=== PATIENT | female | born 1975 | race Caucasian/White ===

== ENCOUNTER 2016-12-22 14:12 | Emergency (ER) | payer MEDICAID ==
[~2016-12-22] VITALS: Ht 160 cm; Wt 71.2 kg
[2016-12-22] MEDS ORDERED: SYNTHROID100 MCG ORAL (14:24)
[2016-12-22 14:28] VITALS: BP 102/68
[2016-12-22 15:20] LABS: BASOPHILS % (AUTO) 0.9 % (0.0-2.0); EOSINOPHILS % (AUTO) 1.1 % (0.0-3.0); LYMPHOCYTES % (AUTO) 34.6 % (20.0-45.0); MEAN CORPUSCULAR HEMOGLOBIN 29.6 PG (27.0-31.0); MEAN CORPUSCULAR HGB CONC 33.4 G/DL (32.0-36.0); MEAN CORPUSCULAR VOLUME 89 FL (80-99); MEAN PLATELET VOLUME 8.1 FL (6.5-10.1); MONOCYTES % (AUTO) 9.5 % (1.0-10.0); PLATELET COUNT 232 K/UL (150-450); WHITE BLOOD COUNT 8.6 K/UL (4.8-10.8)
[2016-12-22 16:21] LABS: ALANINE AMINOTRANSFERASE 12 U/L (3-33); ALBUMIN/GLOBULIN RATIO 1.5 (1.0-2.7); ANION GAP 13 (5-15); ASPARTATE AMINO TRANSFERASE 13 U/L (5-40); CARBON DIOXIDE 26 mEQ/L (20-30); CHLORIDE 99 mEQ/L (98-107); CREATININE 0.6 mg/dL (0.5-0.9); GLOMERULAR FILTRATION RATE > 60 mL/min (>60); HEMOLYSIS 2; POTASSIUM 4.3 mEQ/L (3.4-4.9); SODIUM 138 mEQ/L (135-145); TOTAL PROTEIN 6.8 g/dL (6.6-8.7)
[2016-12-22 16:43] VITALS: BP 104/65
[2016-12-22 16:44] VITALS: BP 104/65
--- NOTE | 2016-12-22 20:45 | Emergency Room Report ---
History of Present Illness General Chief Complaint: Pain Source: Patient Present Illness HPI The patient is a 41 -year-old female presenting for right leg pain. The patient states that she had a "[place] butt lift" in without any complications. 1 month after the surgery, she noticed pain and swelling to the right leg. The patient returned to the surgeon at that time and and aspiration was attempted but was unremarkable. No fluid was collected. No treatment was rendered at that time and the patient has not seen the surgeon since. Pain is described as a 5/10 dull ache to the back of the thigh and does not radiate. Pain worse with movement. She denies any known injury to the area. She denies any other symptoms including N, V, F, Chills, SOB, CP, calf pain, rash Allergies: Coded Allergies: No Known Allergies (Unverified , 12/22/16) Patient History Past Medical History: see triage record Pertinent Family History: none Last Menstrual Period: One week ago Now: No Reviewed Nursing Documentation: PMH: Agreed, PSxH: Agreed Nursing Documentation-PMH Hx Diabetes: No - Hypothyroid Review of Systems All Other Systems: negative except mentioned in HPI Physical Exam Vital Signs Date Time Temp Pulse Resp B/P Pulse Ox O2 Delivery O2 Flow Rate FiO2 12/22/16 14:18 97.7 90 16 102/68 100 Room Air Sp02 EP Interpretation: reviewed, normal General Appearance: no apparent distress, alert, GCS 15, non-toxic Head: normocephalic, atraumatic Eyes: bilateral eye PERRL, bilateral eye normal inspection ENT: hearing grossly normal, normal pharynx, no angioedema, normal voice Gastrointestinal: normal bowel sounds, non tender, soft, non-distended, no guarding, no rebound Musculoskeletal: back normal, digits/nails normal, gait/station normal, normal range of motion, no calf tenderness, tender - TTP over the R posterior medial thigh Neurologic: alert, oriented x3, responsive, motor strength/tone normal, sensory intact, normal gait, speech normal Psychiatric: judgement/insight normal, memory normal, mood/affect normal, no suicidal/homicidal ideation Skin: normal color, no rash, warm/dry, well hydrated Lymphatic: no adenopathy Medical Decision Making PA Attestation Dr. Ray is my supervising physician. Patient management was discussed with my supervising physician Diagnostic Impression: Primary Impression: Right leg swelling ER Course The patient is a 41 -year-old female presenting for right leg pain and swelling Ddx considered include but not limited to sprain/strain, fracture, contusion, DVT, martin cyst PE: vitals WNL. NAD Right leg: Posterior mid thigh there is slight edema. No fluctuance. No surgical scars. No erythema. The area is not tender to palpation. Full active range of motion of the knee. No edema to popliteal region Blood work is all unremarkable including d-dimer. Venous duplex ordered and is unremarkable The patient will need to follow up with her surgeon. ER precautions are given. Patient may need MRI Laboratory Tests Test 12/22/16 15:00 White Blood Count 8.6 K/UL (4.8-10.8) Red Blood Count 4.80 M/UL (4.20-5.40) Hemoglobin 14.2 G/DL (12.0-16.0) Hematocrit 42.5 % (37.0-47.0) Mean Corpuscular Volume 89 FL (80-99) Mean Corpuscular Hemoglobin 29.6 PG (27.0-31.0) Mean Corpuscular Hemoglobin Concent 33.4 G/DL (32.0-36.0) Red Cell Distribution Width 12.0 % (11.6-14.8) Platelet Count 232 K/UL (150-450) Mean Platelet Volume 8.1 FL (6.5-10.1) Neutrophils (%) (Auto) 54.0 % (45.0-75.0) Lymphocytes (%) (Auto) 34.6 % (20.0-45.0) Monocytes (%) (Auto) 9.5 % (1.0-10.0) Eosinophils (%) (Auto) 1.1 % (0.0-3.0) Basophils (%) (Auto) 0.9 % (0.0-2.0) D-Dimer 323 ng/mL (<500) Sodium Level 138 mEQ/L (135-145) Potassium Level 4.3 mEQ/L (3.4-4.9) Chloride Level 99 mEQ/L (98-107) Carbon Dioxide Level 26 mEQ/L (20-30) Anion Gap 13 (5-15) Blood Urea Nitrogen 11 mg/dL (7-23) Creatinine 0.6 mg/dL (0.5-0.9) Estimate Glomerular Filtration Rate > 60 mL/min (>60) Glucose Level 76 mg/dL (74-106) Calcium Level 9.0 mg/dL (8.6-10.2) Total Bilirubin 0.4 mg/dL (0.0-1.2) Aspartate Amino Transferase (AST) 13 U/L (5-40) Alanine Aminotransferase (ALT) 12 U/L (3-33) Alkaline Phosphatase 67 U/L (35-104) Total Protein 6.8 g/dL (6.6-8.7) Albumin 4.1 g/dL (3.5-5.2) Globulin 2.7 g/dL Albumin/Globulin Ratio 1.5 (1.0-2.7) Lab Results Impression CBC, CMP, D-Dimer all unremarkable CT/MRI/US Diagnostic Results CT/MRI/US Diagnostic Results : Imaging Test Ordered: venous duplex Impression Unremarkable Last Vital Signs Date Time Temp Pulse Resp B/P Pulse Ox O2 Delivery O2 Flow Rate FiO2 12/22/16 16:44 97.7 67 16 104/65 100 Room Air Status: improved Disposition: HOME, SELF-CARE Condition: Improved Patient Instructions: Edema Additional Instructions: I discussed my findings with the patient. All questions and concerns have been answered. Treatment and medication compliance have been addressed. I advised the patient that they need to follow up with PMD in 3-5 days. Return to ED if symptoms worsen, new symptoms arise, or if needed for any reason. Patient verbalized understanding of discharge instructions. The patient is informed she will need to see her surgeon for follow up and possibly also obtain MRI. RISHI MTZ Dec 22, 2016 20:45
--- NOTE | 2016-12-23 11:56 | Diagnostic Imaging Report ---
APPROVED REPORT CPT Code: 91118 Present Symptoms Lower Extremity Pain: Right RIGHT LEG: Venous imaging reveals a patent deep venous system. There is no evidence of thrombus within the femoral, popliteal or tibial segments. The greater saphenous vein is also within normal limits. Doppler indicates normal spontaneous flow within these segments.
== END 2016-12-22 17:01 | disposition home or self-care (01) ==
LOC: EMR 15:10
DX: M79.89 Other specified soft tissue disorders (principal); M79.661 Pain in right lower leg; E03.9 Hypothyroidism, unspecified
CPT/HCPCS: 36415; 80053; 85025; 85379; 93971; 99284

== ENCOUNTER 2017-07-10 16:07 | Inpatient (IN) | payer MEDICAID ==
[~2017-07-10] VITALS: Ht 160 cm; Wt 68.9 kg
[~2017-07-10 16:07] MED LIST: SYNTHROID100 MCG ORAL
--- NOTE | 2017-07-10 17:01 | Emergency Room Report ---
History of Present Illness General Chief Complaint: General Complaint Source: Patient Present Illness HPI Patient is a 41-year-old female brought in by self after increased right lower extremity swelling. Patient gradual onset of symptoms. Patient had previously had a plastic surgery procedure done approximately one year ago. The patient had previous similar symptoms and had previous negative duplex ultrasound of her right lower extremity. The patient was noted to have increased discomfort as well as increased swelling over the past few days. Patient was referred to emergency department for further evaluation and treatment. The patient's primary care physician is Dr. Abebe Martínez. She denies any fever. She reports having multiple drainage procedure done previously. The patient previous MRI which showed myositis of the right vastus lateralis. She denies being on antibiotics currently. Allergies: Coded Allergies: No Known Allergies (Unverified , 12/22/16) Patient History Past Medical History: see triage record Reviewed Nursing Documentation: PMH: Agreed, PSxH: Agreed Nursing Documentation-PMH Past Medical History: No Stated History Hx Diabetes: No - Hypothyroid Review of Systems All Other Systems: negative except mentioned in HPI Physical Exam Vital Signs Date Time Temp Pulse Resp B/P (MAP) Pulse Ox O2 Delivery O2 Flow Rate FiO2 07/10/17 16:10 98.2 98 20 123/79 100 Room Air General Appearance: well appearing, no apparent distress, alert, GCS 15 Head: normocephalic, atraumatic ENT: hearing grossly normal, normal voice Neck: full range of motion, supple Respiratory: no respiratory distress, speaking full sentences Cardiovascular #1: normal inspection, edema - edema to right leg laterally Musculoskeletal: no calf tenderness, other - swelling to right thigh compared to left Neurologic: alert, oriented x3, responsive, 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 Differential diagnosis included but was not limited to fracture, contusion, vascular insufficiency, myositis, deep venous thrombosis among others.Because of complexity of patient' s case laboratory testing and imaging studies were ordered. The duplex ultrasound of the right lower extremity showed popliteal vein acute DVT there is also noted to be some superficial thrombosis of the superficial vein to the lateral thigh. There is also noted to be some fluid collection in the right lateral thigh. Laboratory studies were normal white blood count.Dr. Disla was contacted for inpatient management due to complexity of medical condition as capitated physician. Labs Test 07/10/17 17:08 White Blood Count 8.8 K/UL (4.8-10.8) Red Blood Count 4.39 M/UL (4.20-5.40) Hemoglobin 12.8 G/DL (12.0-16.0) Hematocrit 38.6 % (37.0-47.0) Mean Corpuscular Volume 88 FL (80-99) Mean Corpuscular Hemoglobin 29.2 PG (27.0-31.0) Mean Corpuscular Hemoglobin Concent 33.2 G/DL (32.0-36.0) Red Cell Distribution Width 11.0 % (11.6-14.8) Platelet Count 285 K/UL (150-450) Mean Platelet Volume 6.6 FL (6.5-10.1) Neutrophils (%) (Auto) 59.0 % (45.0-75.0) Lymphocytes (%) (Auto) 30.7 % (20.0-45.0) Monocytes (%) (Auto) 7.8 % (1.0-10.0) Eosinophils (%) (Auto) 1.5 % (0.0-3.0) Basophils (%) (Auto) 1.0 % (0.0-2.0) Erythrocyte Sedimentation Rate 33 MM/HR (0-20) D-Dimer 1.08 mg/L FEU (0.00-0.49) Sodium Level 139 MMOL/L (136-145) Potassium Level 4.2 MMOL/L (3.5-5.1) Chloride Level 104 MMOL/L (98-107) Carbon Dioxide Level 30 MMOL/L (21-32) Anion Gap 5 mmol/L (5-15) Blood Urea Nitrogen 11 mg/dL (7-18) Creatinine 0.7 MG/DL (0.55-1.30) Estimat Glomerular Filtration Rate > 60 mL/min (>60) Glucose Level 89 MG/DL (74-106) Calcium Level 8.6 MG/DL (8.5-10.1) Total Bilirubin 0.3 MG/DL (0.2-1.0) Aspartate Amino Transf (AST/SGOT) 15 U/L (15-37) Alanine Aminotransferase (ALT/SGPT) 22 U/L (12-78) Alkaline Phosphatase 79 U/L (46-116) Total Protein 7.5 G/DL (6.4-8.2) Albumin 3.5 G/DL (3.4-5.0) Globulin 4.0 g/dL Albumin/Globulin Ratio 0.9 (1.0-2.7) Last Vital Signs Date Time Temp Pulse Resp B/P (MAP) Pulse Ox O2 Delivery O2 Flow Rate FiO2 07/10/17 16:10 98.2 98 20 123/79 100 Room Air Status: unchanged Disposition: ADMITTED INPATIENT Condition: Serious Aakash Ray Jul 10, 2017 17:01
[2017-07-10 17:33] LABS: EOSINOPHILS % (AUTO) 1.5 % (0.0-3.0); LYMPHOCYTES % (AUTO) 30.7 % (20.0-45.0); MEAN CORPUSCULAR HEMOGLOBIN 29.2 PG (27.0-31.0); MEAN CORPUSCULAR HGB CONC 33.2 G/DL (32.0-36.0); MEAN CORPUSCULAR VOLUME 88 FL (80-99); MEAN PLATELET VOLUME 6.6 FL (6.5-10.1); MONOCYTES % (AUTO) 7.8 % (1.0-10.0); PLATELET COUNT 285 K/UL (150-450); RED BLOOD COUNT 4.39 M/UL (4.20-5.40); WHITE BLOOD COUNT 8.8 K/UL (4.8-10.8)
[2017-07-10 17:41] VITALS: BP 123/79
[2017-07-10 17:48] LABS: ANION GAP 5 mmol/L (5-15); CALCIUM 8.6 MG/DL (8.5-10.1); CARBON DIOXIDE 30 MMOL/L (21-32); CHLORIDE 104 MMOL/L (98-107); CREATININE 0.7 MG/DL (0.55-1.30); GLOMERULAR FILTRATION RATE > 60 mL/min (>60); POTASSIUM 4.2 MMOL/L (3.5-5.1); SODIUM 139 MMOL/L (136-145)
[2017-07-10 17:53] LABS: ALANINE AMINOTRANSFERASE 22 U/L (12-78); ALBUMIN/GLOBULIN RATIO 0.9 (1.0-2.7); ASPARTATE AMINO TRANSFERASE 15 U/L (15-37); TOTAL PROTEIN 7.5 G/DL (6.4-8.2)
[2017-07-10 18:47] LABS: ERYTHROCYTE SEDIMENTATION RATE 33 MM/HR (0-20)
[2017-07-10 19:58] LABS: INR 0.9 (0.9-1.1); PROTHROMBIN TIME 9.7 SEC (9.30-11.50)
[2017-07-10 20:35] VITALS: BP 123/79
[2017-07-10] MEDS ORDERED: Enoxaparin 80mg Inj SUBQ SCH (21:00)
[2017-07-10] MEDS ORDERED: FERROUS SULFAT325 MG ORAL (21:34)
[2017-07-10] MEDS ORDERED: Zolpidem 5mg tab ORAL PRN (22:15)
[2017-07-10] MEDS ORDERED: Morphine Sulfate 2mg/ml Inj IVP PRN (22:15)
[2017-07-10] MEDS ORDERED: Mylanta II UD 30ml ORAL PRN (22:15)
[2017-07-10] MEDS ORDERED: Miralax 17gm pkt ORAL PRN (22:15)
[2017-07-10] MEDS ORDERED: LORazepam Inj 2mg/ml 1ml IV PRN (22:15)
[2017-07-11] MEDS: Enoxaparin 80mg Inj SUBQ SCH ×3 (00:33→20:00)
[2017-07-11 04:00] VITALS: BP 107/65
[2017-07-11 07:15] LABS: BASOPHILS % (AUTO) 1.2 % (0.0-2.0); EOSINOPHILS % (AUTO) 1.8 % (0.0-3.0); LYMPHOCYTES % (AUTO) 37.8 % (20.0-45.0); MEAN CORPUSCULAR HEMOGLOBIN 29.9 PG (27.0-31.0); MEAN CORPUSCULAR HGB CONC 33.9 G/DL (32.0-36.0); MEAN CORPUSCULAR VOLUME 88 FL (80-99); MEAN PLATELET VOLUME 7.6 FL (6.5-10.1); NEUTROPHILS % (AUTO) 51.2 % (45.0-75.0); PLATELET COUNT 284 K/UL (150-450); RED BLOOD COUNT 4.49 M/UL (4.20-5.40); RED CELL DISTRIBUTION WIDTH 10.9 % (11.6-14.8); WHITE BLOOD COUNT 7.2 K/UL (4.8-10.8)
[2017-07-11 07:34] LABS: ALANINE AMINOTRANSFERASE 18 U/L (12-78); ALBUMIN/GLOBULIN RATIO 0.8 (1.0-2.7); ANION GAP 7 mmol/L (5-15); ASPARTATE AMINO TRANSFERASE 13 U/L (15-37); CALCIUM 8.4 MG/DL (8.5-10.1); CARBON DIOXIDE 26 MMOL/L (21-32); CHLORIDE 106 MMOL/L (98-107); CHOLESTEROL 164 MG/DL (< 200); CHOLESTEROL/HDL RATIO 4.1 (3.3-4.4); CREATININE 0.7 MG/DL (0.55-1.30); GLOMERULAR FILTRATION RATE > 60 mL/min (>60); SODIUM 139 MMOL/L (136-145); TOTAL PROTEIN 6.8 G/DL (6.4-8.2)
[2017-07-11 08:15] VITALS: BP 109/77
--- NOTE | 2017-07-11 08:42 | History and Physical ---
History of Present Illness General Date patient seen: Jul 11, 2017 Time patient seen: 08:00 Reason for Hospitalization: General Complaint Present Illness HPI 41y/old female with PMH of hypothyroidism presented to ED due to increased right lower extremity swelling. reported gradual onset reported plastic surgery procedure about an year ago for [place] lift since the procedure intermittent similar symptoms with negative Duplex US of RLE over the last few days worsening symptoms: increased swelling and discomfort denied fever, chills reported multiple weekly drainage with syringe procedures in the plastic surgeon office patient never seen the content of syringe and can't described it MRI was done and showed myositis of the right vastus lateralis. never received any antibiotics at this time was referred by the office to the hospital for further evaluation Allergies: Coded Allergies: No Known Allergies (Unverified , 12/22/16) Medication History Scheduled Ferrous Sulfate* (Ferrous Sulfate*), 325 MG ORAL DAILY, (Reported) Levothyroxine Sodium* (Synthroid*), 100 MCG ORAL DAILY, (Reported) Patient History Healthcare decision maker CELSA HAMM COURTNEY V Resuscitation status Full Code Advanced Directive on File No Review of Systems Constitutional: Reports: no symptoms Eye: Reports: no symptoms ENT: Reports: no symptoms Respiratory: Reports: no symptoms Cardiovascular: Reports: no symptoms Gastrointestinal: Reports: no symptoms Genitourinary: Reports: no symptoms Musculoskeletal: Reports: see HPI Skin: Reports: no symptoms Psychiatric: Reports: no symptoms Hematologic/Lymphatic: Reports: see HPI, other - hypothyroidism Physical Exam General Appearance: WD/WN, no apparent distress, alert Lines, tubes and drains: peripheral HEENT: normocephalic, atraumatic, anicteric, mucous membranes moist, PERRL Neck: non-tender, normal alignment, supple Respiratory/Chest: lungs clear, no respiratory distress, no accessory muscle use Cardiovascular/Chest: normal peripheral pulses, normal rate, regular rhythm Abdomen: normal bowel sounds, non tender, soft Extremities: other - right LE above popliteal area with erythema, edema and TTP 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 normal, no motor/sensory deficits, alert, oriented x 3, responsive Musculoskeletal: normal muscle bulk Last 24 Hour Vital Signs Date Time Temp Pulse Resp B/P (MAP) Pulse Ox O2 Delivery O2 Flow Rate FiO2 07/11/17 08:15 98.2 81 21 109/77 97 Room Air 07/11/17 04:00 97.5 71 20 107/65 99 Room Air 07/11/17 02:34 97.5 07/10/17 23:31 98.2 07/10/17 20:35 98.2 78 20 123/79 100 Room Air 07/10/17 20:35 98.2 78 20 123/79 100 Room Air 07/10/17 17:41 98.2 78 20 123/79 100 Room Air 07/10/17 16:10 98.2 98 20 123/79 100 Room Air Intake and Output 07/11/17 07/12/17 19:00 07:00 Intake Total 240 ml Balance 240 ml Intake Oral 240 ml Laboratory Tests Test 07/10/17 17:08 07/11/17 06:15 White Blood Count 8.8 K/UL (4.8-10.8) 7.2 K/UL (4.8-10.8) Red Blood Count 4.39 M/UL (4.20-5.40) 4.49 M/UL (4.20-5.40) Hemoglobin 12.8 G/DL (12.0-16.0) 13.4 G/DL (12.0-16.0) Hematocrit 38.6 % (37.0-47.0) 39.6 % (37.0-47.0) Mean Corpuscular Volume 88 FL (80-99) 88 FL (80-99) Mean Corpuscular Hemoglobin 29.2 PG (27.0-31.0) 29.9 PG (27.0-31.0) Mean Corpuscular Hemoglobin Concent 33.2 G/DL (32.0-36.0) 33.9 G/DL (32.0-36.0) Red Cell Distribution Width 11.0 % (11.6-14.8) L 10.9 % (11.6-14.8) L Platelet Count 285 K/UL (150-450) 284 K/UL (150-450) Mean Platelet Volume 6.6 FL (6.5-10.1) 7.6 FL (6.5-10.1) Neutrophils (%) (Auto) 59.0 % (45.0-75.0) 51.2 % (45.0-75.0) Lymphocytes (%) (Auto) 30.7 % (20.0-45.0) 37.8 % (20.0-45.0) Monocytes (%) (Auto) 7.8 % (1.0-10.0) 8.0 % (1.0-10.0) Eosinophils (%) (Auto) 1.5 % (0.0-3.0) 1.8 % (0.0-3.0) Basophils (%) (Auto) 1.0 % (0.0-2.0) 1.2 % (0.0-2.0) Erythrocyte Sedimentation Rate 33 MM/HR (0-20) H Prothrombin Time 9.7 SEC (9.30-11.50) Prothromb Time International Ratio 0.9 (0.9-1.1) Activated Partial Thromboplast Time 29 SEC (23-33) 34 SEC (23-33) H D-Dimer 1.08 mg/L FEU (0.00-0.49) H Sodium Level 139 MMOL/L (136-145) 139 MMOL/L (136-145) Potassium Level 4.2 MMOL/L (3.5-5.1) 4.0 MMOL/L (3.5-5.1) Chloride Level 104 MMOL/L (98-107) 106 MMOL/L (98-107) Carbon Dioxide Level 30 MMOL/L (21-32) 26 MMOL/L (21-32) Anion Gap 5 mmol/L (5-15) 7 mmol/L (5-15) Blood Urea Nitrogen 11 mg/dL (7-18) 10 mg/dL (7-18) Creatinine 0.7 MG/DL (0.55-1.30) 0.7 MG/DL (0.55-1.30) Estimat Glomerular Filtration Rate > 60 mL/min (>60) > 60 mL/min (>60) Glucose Level 89 MG/DL (74-106) 94 MG/DL (74-106) Calcium Level 8.6 MG/DL (8.5-10.1) 8.4 MG/DL (8.5-10.1) L Total Bilirubin 0.3 MG/DL (0.2-1.0) 0.5 MG/DL (0.2-1.0) Aspartate Amino Transf (AST/SGOT) 15 U/L (15-37) 13 U/L (15-37) L Alanine Aminotransferase (ALT/SGPT) 22 U/L (12-78) 18 U/L (12-78) Alkaline Phosphatase 79 U/L (46-116) 68 U/L (46-116) Total Creatine Kinase 52 U/L (26-308) Total Protein 7.5 G/DL (6.4-8.2) 6.8 G/DL (6.4-8.2) Albumin 3.5 G/DL (3.4-5.0) 3.1 G/DL (3.4-5.0) L Globulin 4.0 g/dL 3.7 g/dL Albumin/Globulin Ratio 0.9 (1.0-2.7) L 0.8 (1.0-2.7) L Triglycerides Level 152 MG/DL (0-200) Cholesterol Level 164 MG/DL (< 200) LDL Cholesterol 103 mg/dL (<100) H HDL Cholesterol 40 MG/DL (40-60) Cholesterol/HDL Ratio 4.1 (3.3-4.4) Height (Feet): 5 Height (Inches): 3.00 Weight (Pounds): 152 Medications Current Medications Medications (Trade) Dose Ordered Sig/Mary Alice Route PRN Reason Start Time Stop Time Status Last Admin Dose Admin Acetaminophen (Tylenol) 650 mg Q4H PRN ORAL fever 07/10/17 22:15 08/09/17 22:14 07/11/17 01:35 Al Hydroxide/Mg Hydroxide (Mylanta II) 30 ml Q6H PRN ORAL dyspepsia 07/10/17 22:15 08/09/17 22:14 Dextrose (Dextrose 50%) STAT PRN IV Hypoglycemia 07/10/17 22:15 08/09/17 22:14 Enoxaparin Sodium (Lovenox) 70 mg EVERY 12 HOURS SUBQ 07/10/17 22:31 08/09/17 22:30 07/11/17 00:33 Levothyroxine Sodium (Synthroid) 100 mcg ACBREAKFAST ORAL 07/11/17 06:30 08/10/17 06:29 07/11/17 06:32 Lorazepam (Ativan 2mg/ml 1ml) 0.5 mg Q4H PRN IV For Anxiety 07/10/17 22:15 07/17/17 22:14 Morphine Sulfate (Morphine Sulfate) 1 mg Q4H PRN IVP For Pain 07/10/17 22:15 07/17/17 22:14 07/10/17 23:01 Ondansetron HCl (Zofran) 4 mg Q6H PRN IVP Nausea & Vomiting 07/10/17 22:15 08/09/17 22:14 Polyethylene Glycol (Miralax) 17 gm HSPRN PRN ORAL Constipation 07/10/17 22:15 08/09/17 22:14 Warfarin Sodium (Coumadin per pharmacy) 1 ea DAILY PRN MISC Per rx protocol 07/11/17 06:45 08/10/17 06:44 Warfarin Sodium (Coumadin) 5 mg COUMADIN ONCE ORAL 07/11/17 17:00 07/11/17 17:01 Zolpidem Tartrate (Ambien) 5 mg HSPRN PRN ORAL Insomnia 07/10/17 22:15 07/17/17 22:14 Assessment/Plan Assessment/Plan ASSESSMENT Acute DVT RLE popliteal vein myositis RLE, likely due to injury hx of plastic surgery [place] lift RLE pain hypothyroidism PLAN OF CARE MS floor a/coagulation with Lovenox and Coumadin to bridge to therapeutic INR heme eval ID eval pain management check TSH, continue for now current dose of levothyroxine symptomatic Rx case discussed and evaluated by supervising physician Timothy Dumont)Leonora NP Jul 11, 2017 08:42
[2017-07-11 12:14] VITALS: BP 109/75
--- NOTE | 2017-07-11 14:42 | Consultation ---
Consult Note Consult Note ID CONSULT: Reymundo# [id number] Assessment/Plan ASSESSMENT: 41 y/o female with: // Chronic right posterior leg swelling and fluid collection after [place] butt lift ~1year ago r/o infection including atypical mycobacteria, fungal vs hematoma or seroma - US: large superficial anechoic structure containing echogenic debris measuring 5 x 6.2 x 5cm - outpt MRI 02/26/17: right vastus lateralis hyperintense STIR sequences suggestive of myositis/edema - h/o German butt lift ~1yr rq repeated drainage procedures, not sent for culture // Afebrile without leukocytosis // Acute RLE nonocclusive popliteal DVT // Elevated ESR // NKDA // Full Code PLAN: - hold off on antimicrobials for now - IR drainage of fluid collection, send for GS, culture, AFB, fungal stains and culture - repeat MRI - f/u blood cultures - monitor CBC, temperatures - monitor BMP - anticoagulation per PCP d/w HAND SLITTER Timothy Thanks! Will follow ANGELA LEZAMA Jul 11, 2017 14:42
[2017-07-11 16:00] VITALS: BP 110/73
[2017-07-11] MEDS ORDERED: Warfarin Sodium 5mg ORAL ONE (17:00)
[2017-07-11 19:13] VITALS: BP 113/76
[2017-07-12] VITALS: BP 107/52
--- NOTE | 2017-07-12 00:32 | Consultation ---
DATE OF CONSULTATION: 07/11/2017 INFECTIOUS DISEASES CONSULTATION REQUESTING PHYSICIAN: Carl Disla M.D. REASON FOR CONSULTATION: Right thigh swelling. HISTORY OF PRESENT ILLNESS: This is a 41-year-old female, admitted on 07/10/2017 with right lower extremity pain and swelling. The patient underwent a [place] butt lift procedure approximately one year ago and has had problems with right posterior thigh swelling ever since. She had outpatient MRI performed in February of this year showing right vastus lateralis hyperintense STIR sequences suggestive of myositis and edema for which she was referred to Rheumatology, who recommended she follow up with her surgeon. Upon surgical followup, she underwent percutaneous drainage procedures that were not sent for culture. She is afebrile without leukocytosis and has evidence of an acute right lower extremity DVT on imaging here. Blood cultures are pending and she is currently not on any antimicrobial therapy. Infectious Disease now consulted to assist in management. PAST MEDICAL HISTORY: Hypothyroidism, on replacement. PAST SURGICAL HISTORY: 1. x2, uncomplicated. 2. [place] butt lift with injection of own liposuction fat approximately one year ago performed in [place]. MEDICATIONS: 1. . 2. Coumadin. 3. Lovenox. 4. Synthroid. ALLERGIES: No known drug allergies. SOCIAL HISTORY: The patient lives locally with her family. No tobacco, alcohol, or illicit drug abuse. FAMILY HISTORY: Mother had breast cancer and father had lung cancer. REVIEW OF SYSTEMS: As per history of present illness. Ten systems reviewed. All pertinent positives and negatives noted. PHYSICAL EXAMINATION: VITAL SIGNS: Maximum temperature 98.2, blood pressure 109/75, heart rate in the 60s, respiratory rate 20, and saturating 95% on room air. GENERAL: No apparent distress. Nontoxic appearing. CARDIOVASCULAR: Regular rate and rhythm. No murmurs. PULMONARY: Clear to auscultation bilaterally. ABDOMINAL: Bowel sounds present. Soft, nondistended, and nontender. MUSCULOSKELETAL: Right posterior thigh swelling with minimal warmth and no significant overlying erythema. NEUROLOGICAL: Alert and oriented x3, nonfocal. LABORATORY DATA: White blood cell count 7.8, hemoglobin 13.4, and platelets 284. Sodium 134, potassium 4, chloride 106, bicarbonate 26, BUN 10, creatinine 0.7, and glucose 94. ESR 33. INR 1.08. Liver function tests within normal limits. Creatine kinase 52. MICROBIOLOGY: On 07/10/2017, blood culture pending. IMAGIN. On 07/10/2017, bilateral lower extremity Doppler ultrasound, there is a large superficial anechoic structure containing echogenic debris extending from the posterior proximal lateral thigh to the posterior distal lateral thigh. This structure measures 5 x 6.2 x 5 cm. Acute nonocclusive thrombus in the proximal popliteal vein. 2. MRI of the right thigh 02/27/2016 with right vastus lateralis hyperintense STIR sequences suggestive of myositis or edema. ASSESSMENT: 1. Chronic right posterior leg swelling and fluid collection complicating [place] butt lift procedure approximately one year ago, rule out infection including atypical mycobacterial and fungal or hematoma or seroma. Imaging as above. She has undergone repeated drainage procedures as an outpatient, they have not been sent for culture. 2. Afebrile without leukocytosis. 3. Acute right lower extremity nonocclusive deep vein thrombosis. 4. Elevated erythrocyte sedimentation rate. 5. No known drug allergies. 6. Full Code. PLAN: 1. Hold off on antimicrobials for now. 2. Repeat MRI and IR drainage of the fluid collection and send for Gram stain culture as well as AFB and fungal stains and cultures. 3. Follow up blood cultures. 4. Monitor CBC and temperatures. 5. Monitor BMP. 6. Discussed with nurse practitioner, Timothy. Thank you. We will follow. Gallo Menjivar M.D. DR: Vic JOB#: [id number] CC: Carl Disla M.D.; Fax#: [phone] Amadou Funk M.D; FAX#: [phone]
[2017-07-12 04:00] VITALS: BP 107/58
[2017-07-12 07:23] LABS: PROTHROMBIN TIME 10.3 SEC (9.30-11.50)
[2017-07-12 08:19] VITALS: BP 113/71
--- NOTE | 2017-07-12 09:05 | Diagnostic Imaging Report ---
Indication: Posterior right thigh swelling, status post Swazi buttock lift one year ago Technique: Coronal T1, axial STIR, coronal STIR, sagittal STIR, axial T1, sagittal T1, axial T2 weighted images of the right hip and thigh Comparison: None Findings: There is a fluid collection which measures approximately 8.5 cm transverse by 3 cm AP by 10 cm craniocaudad. This is located anterior to the gluteus abdias muscle and posterior to the gluteus medius muscle. In the anterior aspect of the collection, there are low signal punctate foci surrounded by high T1 and T2 signal which probably represents fat although suppression on the STIR images is questionable. This collection appears to be well-circumscribed. A second similar collection is seen in the posterior lateral proximal thigh. This measures 6.5 cm AP by 4.7 cm transverse by 22 cm craniocaudad. This is located lateral to the semi-tendinosis muscle, which it displaces medially, and posterior to the vastus lateralis, which it displaces anteriorly. This also appears well circumscribed. Is also contains unusual punctate low signal foci surrounded by what may be fat. A thin tract is seen connecting the 2 collections. A third collection is seen anterior to the semi-tendinosis muscle more distally in the thigh and posterior to the femur. This collection measures 2.5 cm AP by 2.3 cm transverse by 5 cm craniocaudad, and likewise demonstrates unusual punctate internal low signal foci. This appears to communicate laterally with the larger thigh collection. Another small mostly fat signal collection is seen within the gluteus abdias muscle. This measures 3 cm transverse by 1.6 cm AP by 1.6 cm craniocaudad. The gluteus abdias muscle demonstrates considerable fatty replacement. There is minimal edema of the subcutaneous fat posterior to the large by collection. This is fairly focal. Note evidence of generalized cellulitis is demonstrated. No definite myositis. Numerous small fluid foci are seen within the pelvis. Suspect that those in the right iliac fossa represent ovarian follicles, and those in the midline represent cervical nabothian cysts. No osseous marrow abnormality is demonstrated. Impression: Multiple right thigh and buttock/hip fluid collections, as described, most of which appear to communicate. Punctate foci of internal low signal may represent surgically introduced foreign bodies, likely admixed with fat. Given stated clinical history, presumably these represent sequelae of prior cosmetic procedures. Infection within any these collections cannot be excluded Only minimal soft tissue edema seen focally adjacent to the midportion of the right thigh collection. No other evidence of significant soft tissue inflammation. Considerable fatty replacement of the gluteus abdias muscle. No evidence of osteomyelitis
[2017-07-12] MEDS: Enoxaparin 80mg Inj SUBQ SCH (09:08)
--- NOTE | 2017-07-12 11:46 | Infectious Diseases Prog Note ---
Assessment/Plan Assessment/Plan ASSESSMENT: 41 y/o female with: // Chronic right posterior leg swelling and fluid collection after [place]i butt lift ~1year ago r/o infection including atypical mycobacteria, fungal vs foreign body - Multiple right thigh and buttock/hip fluid collections, as described, most of which appear to communicate. Punctate foci of internal low signal may represent surgically introduced foreign bodies, likely admixed with fat. - US: large superficial anechoic structure containing echogenic debris measuring 5 x 6.2 x 5cm - outpt MRI 02/26/17: right vastus lateralis hyperintense STIR sequences suggestive of myositis/edema - h/o [place]rain[place] butt lift ~1yr rq repeated drainage procedures, not sent for culture // Afebrile without leukocytosis // Acute RLE nonocclusive popliteal DVT // Elevated ESR // NKDA // Full Code PLAN: - hold off on antimicrobials for now - IR drainage of fluid collection, send for GS, culture, AFB, fungal stains and culture - f/u blood cultures - monitor CBC, temperatures - monitor BMP - anticoagulation per PCP Subjective Constitutional: Denies: no symptoms, fever, chills, fatigue, anorexia, drenching sweats, other Allergies: Coded Allergies: No Known Allergies (Unverified , 12/22/16) Objective Vital Signs Last 24 Hour Vital Signs Date Time Temp Pulse Resp B/P (MAP) Pulse Ox O2 Delivery O2 Flow Rate FiO2 07/12/17 08:19 97.0 79 20 113/71 93 Room Air 07/12/17 04:00 97.6 72 18 107/58 97 Room Air 07/12/17 00:00 97.3 70 18 107/52 98 Room Air 07/11/17 19:49 97.5 07/11/17 19:13 97.5 85 20 113/76 97 Room Air 07/11/17 16:00 97.3 74 20 110/73 98 Room Air 07/11/17 12:14 97.1 66 21 109/75 95 Room Air Height (Feet): 5 Height (Inches): 3.00 Weight (Pounds): 152 HEENT: anicteric Respiratory/Chest: no respiratory distress Cardiovascular: regularly irregular Abdomen: no organomegaly Microbiology Date/Time Source Procedure Growth Status 07/10/17 17:15 Blood Blood Culture - Preliminary NO GROWTH AFTER 24 HOURS Resulted 07/10/17 17:05 Blood Blood Culture - Preliminary NO GROWTH AFTER 24 HOURS Resulted Laboratory Tests Test 07/12/17 04:45 Prothrombin Time 10.3 SEC (9.30-11.50) Prothromb Time International Ratio 1.0 (0.9-1.1) Current Medications Medications (Trade) Dose Ordered Sig/Mary Alice Route PRN Reason Start Time Stop Time Status Last Admin Dose Admin Acetaminophen (Tylenol) 650 mg Q4H PRN ORAL fever 07/10/17 22:15 08/09/17 22:14 07/12/17 09:16 Al Hydroxide/Mg Hydroxide (Mylanta II) 30 ml Q6H PRN ORAL dyspepsia 07/10/17 22:15 08/09/17 22:14 Dextrose (Dextrose 50%) STAT PRN IV Hypoglycemia 07/10/17 22:15 08/09/17 22:14 Enoxaparin Sodium (Lovenox) 70 mg EVERY 12 HOURS SUBQ 07/10/17 22:31 08/09/17 22:30 07/12/17 09:08 Levothyroxine Sodium (Synthroid) 100 mcg ACBREAKFAST ORAL 07/11/17 06:30 08/10/17 06:29 07/12/17 06:03 Lorazepam (Ativan 2mg/ml 1ml) 0.5 mg Q4H PRN IV For Anxiety 07/10/17 22:15 07/17/17 22:14 Morphine Sulfate (Morphine Sulfate) 1 mg Q4H PRN IVP For Pain 07/10/17 22:15 07/17/17 22:14 07/10/17 23:01 Ondansetron HCl (Zofran) 4 mg Q6H PRN IVP Nausea & Vomiting 07/10/17 22:15 08/09/17 22:14 Polyethylene Glycol (Miralax) 17 gm HSPRN PRN ORAL Constipation 07/10/17 22:15 08/09/17 22:14 07/11/17 19:58 Warfarin Sodium (Coumadin per pharmacy) 1 ea DAILY PRN MISC Per rx protocol 07/11/17 06:45 08/10/17 06:44 Warfarin Sodium (Coumadin) 7.5 mg COUMADIN ONCE ORAL 07/12/17 17:00 07/12/17 17:01 Zolpidem Tartrate (Ambien) 5 mg HSPRN PRN ORAL Insomnia 07/10/17 22:15 07/17/17 22:14 FAUSTINA VILLALOBOS M.D. Jul 12, 2017 11:46
[2017-07-12 12:09] VITALS: BP 109/78
--- NOTE | 2017-07-12 13:34 | Pulmonology Progress Note ---
Assessment/Plan Assessment/Plan ASSESSMENT chronic R posterior leg swelling and fluid collection after Cam[place]onian butt lift , r/o infection Acute DVT RLE popliteal vein myositis RLE, likely due to injury hx of plastic surgery [place] lift RLE pain hypothyroidism PLAN OF CARE MS floor a/coagulation with Lovenox and Coumadin to bridge to therapeutic INR, INR still subtherapeutic heme follows ID eval appreciated MRI R hip - Multiple right thigh and buttock/hip fluid collections, as described , most of which appear to communicate. Punctate foci of internal low signal may represent surgically introduced foreign bodies, likely admixed with fat. Given stated clinical history, presumably these represent sequelae of prior cosmetic procedures. Infection within any these collections cannot be excluded Only minimal soft tissue edema seen focally adjacent to the midportion of the right thigh collection. No other evidence of significant soft tissue inflammation. Considerable fatty replacement of the gluteus abdias muscle. No evidence of osteomyelitis per ID recommendations - IR drainage of fluid collection hold off abx for now blood cx preliminary negative will fup with culture of drainage will try to get plastic surgery eval pain management check TSH, continue for now current dose of levothyroxine symptomatic Rx case discussed and evaluated by supervising physician Subjective Allergies: Coded Allergies: No Known Allergies (Unverified , 12/22/16) Subjective afebrile, no leucocytosis seen and evaluated by ID specialist Objective Last 24 Hour Vital Signs Date Time Temp Pulse Resp B/P (MAP) Pulse Ox O2 Delivery O2 Flow Rate FiO2 07/12/17 12:09 97.9 75 20 109/78 96 Room Air 07/12/17 08:19 97.0 79 20 113/71 93 Room Air 07/12/17 04:00 97.6 72 18 107/58 97 Room Air 07/12/17 00:00 97.3 70 18 107/52 98 Room Air 07/11/17 19:49 97.5 07/11/17 19:13 97.5 85 20 113/76 97 Room Air 07/11/17 16:00 97.3 74 20 110/73 98 Room Air Objective General Appearance: WD/WN, no apparent distress, alert Lines, tubes and drains: peripheral HEENT: normocephalic, atraumatic, anicteric, mucous membranes moist, PERRL Neck: non-tender, normal alignment, supple Respiratory/Chest: lungs clear, no respiratory distress, no accessory muscle use Cardiovascular/Chest: normal peripheral pulses, normal rate, regular rhythm Abdomen: normal bowel sounds, non tender, soft Extremities: other - right LE posterior area above popliteal with erythema, edema and TTP 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, no motor/sensory deficits, alert, oriented x 3, responsive Musculoskeletal: normal muscle bulk Microbiology Date/Time Source Procedure Growth Status 07/10/17 17:15 Blood Blood Culture - Preliminary NO GROWTH AFTER 24 HOURS Resulted 07/10/17 17:05 Blood Blood Culture - Preliminary NO GROWTH AFTER 24 HOURS Resulted Laboratory Tests 07/12/17 04:45: Prothrombin Time 10.3, Prothromb Time International Ratio 1.0 Current Medications Medications (Trade) Dose Ordered Sig/Mary Alice Route PRN Reason Start Time Stop Time Status Last Admin Dose Admin Acetaminophen (Tylenol) 650 mg Q4H PRN ORAL fever 07/10/17 22:15 08/09/17 22:14 07/12/17 09:16 Al Hydroxide/Mg Hydroxide (Mylanta II) 30 ml Q6H PRN ORAL dyspepsia 07/10/17 22:15 08/09/17 22:14 Dextrose (Dextrose 50%) STAT PRN IV Hypoglycemia 07/10/17 22:15 08/09/17 22:14 Enoxaparin Sodium (Lovenox) 70 mg EVERY 12 HOURS SUBQ 07/10/17 22:31 08/09/17 22:30 07/12/17 09:08 Levothyroxine Sodium (Synthroid) 100 mcg ACBREAKFAST ORAL 07/11/17 06:30 08/10/17 06:29 07/12/17 06:03 Lorazepam (Ativan 2mg/ml 1ml) 0.5 mg Q4H PRN IV For Anxiety 07/10/17 22:15 07/17/17 22:14 Morphine Sulfate (Morphine Sulfate) 1 mg Q4H PRN IVP For Pain 07/10/17 22:15 07/17/17 22:14 07/10/17 23:01 Ondansetron HCl (Zofran) 4 mg Q6H PRN IVP Nausea & Vomiting 07/10/17 22:15 08/09/17 22:14 Polyethylene Glycol (Miralax) 17 gm HSPRN PRN ORAL Constipation 07/10/17 22:15 08/09/17 22:14 07/11/17 19:58 Warfarin Sodium (Coumadin per pharmacy) 1 ea DAILY PRN MISC Per rx protocol 07/11/17 06:45 08/10/17 06:44 Warfarin Sodium (Coumadin) 7.5 mg COUMADIN ONCE ORAL 07/12/17 17:00 07/12/17 17:01 Zolpidem Tartrate (Ambien) 5 mg HSPRN PRN ORAL Insomnia 07/10/17 22:15 07/17/17 22:14 Timothy ([facility])Leonora NP Jul 12, 2017 13:34
[2017-07-12 15:32] VITALS: BP 114/72
[2017-07-12] MEDS ORDERED: Warfarin Sodium 7.5mg ORAL ONE (17:00)
[2017-07-12 19:20] VITALS: BP 119/81
[2017-07-12] MEDS: Enoxaparin Sodium 300mg/3ml vial SUBQ SCH (20:33)
[2017-07-13 00:20] VITALS: BP 125/82
[2017-07-13 04:00] VITALS: BP 120/65
[2017-07-13 07:46] LABS: BASOPHILS % (AUTO) 1.1 % (0.0-2.0); EOSINOPHILS % (AUTO) 2.1 % (0.0-3.0); LYMPHOCYTES % (AUTO) 35.6 % (20.0-45.0); MEAN CORPUSCULAR HEMOGLOBIN 30.2 PG (27.0-31.0); MEAN CORPUSCULAR HGB CONC 34.4 G/DL (32.0-36.0); MEAN CORPUSCULAR VOLUME 88 FL (80-99); MEAN PLATELET VOLUME 7.4 FL (6.5-10.1); MONOCYTES % (AUTO) 8.7 % (1.0-10.0); NEUTROPHILS % (AUTO) 52.5 % (45.0-75.0); PLATELET COUNT 301 K/UL (150-450); RED BLOOD COUNT 4.79 M/UL (4.20-5.40); RED CELL DISTRIBUTION WIDTH 11.1 % (11.6-14.8)
[2017-07-13 07:49] LABS: INR 1.1 (0.9-1.1)
[2017-07-13 07:57] LABS: ANION GAP 7 mmol/L (5-15); CALCIUM 8.6 MG/DL (8.5-10.1); CARBON DIOXIDE 26 MMOL/L (21-32); CHLORIDE 106 MMOL/L (98-107); CREATININE 0.7 MG/DL (0.55-1.30); GLOMERULAR FILTRATION RATE > 60 mL/min (>60); POTASSIUM 4.2 MMOL/L (3.5-5.1); SODIUM 139 MMOL/L (136-145); THYROID STIMULATING HORMONE 0.799 uiU/mL (0.360-3.740)
[2017-07-13 08:00] VITALS: BP 116/79
[2017-07-13] MEDS: Enoxaparin Sodium 300mg/3ml vial SUBQ SCH ×2 (08:41→20:49)
--- NOTE | 2017-07-13 10:21 | Pulmonology Progress Note ---
Assessment/Plan Assessment/Plan ASSESSMENT chronic R posterior leg swelling and fluid collection after [place]ankan butt lift , r/o infection Acute DVT RLE popliteal vein myositis RLE, likely due to injury hx of plastic surgery [place]ank[place] lift RLE pain hypothyroidism PLAN OF CARE MS floor a/coagulation with Lovenox and Coumadin to bridge to therapeutic INR, INR still subtherapeutic -1.1 heme follows ID follows MRI R hip - Multiple right thigh and buttock/hip fluid collections, as described , most of which appear to communicate. Punctate foci of internal low signal may represent surgically introduced foreign bodies, likely admixed with fat. Given stated clinical history, presumably these represent sequelae of prior cosmetic procedures. Infection within any these collections cannot be excluded Only minimal soft tissue edema seen focally adjacent to the midportion of the right thigh collection. No other evidence of significant soft tissue inflammation. Considerable fatty replacement of the gluteus abdias muscle. No evidence of osteomyelitis per ID recommendations - IR drainage of fluid collection hold off abx for now blood cx preliminary negative will fup with culture of drainage will try to get plastic surgery eval ( dr Rodgers will see on pain management TSH WNL , continue for now current dose of levothyroxine symptomatic Rx case discussed and evaluated by supervising physician Subjective Allergies: Coded Allergies: No Known Allergies (Unverified , 12/22/16) Subjective afebrile, no leucocytosis Objective Last 24 Hour Vital Signs Date Time Temp Pulse Resp B/P (MAP) Pulse Ox O2 Delivery O2 Flow Rate FiO2 07/13/17 08:00 97.2 94 18 116/79 96 Room Air 07/13/17 04:00 98.8 65 17 120/65 97 Room Air 07/13/17 00:20 98.1 81 18 125/82 96 Room Air 07/12/17 19:20 97.7 83 20 119/81 96 Room Air 07/12/17 15:32 97.4 76 20 114/72 97 Room Air 07/12/17 12:09 97.9 75 20 109/78 96 Room Air Objective General Appearance: WD/WN, no apparent distress, alert Lines, tubes and drains: peripheral HEENT: normocephalic, atraumatic, anicteric, mucous membranes moist, PERRL Neck: non-tender, normal alignment, supple Respiratory/Chest: lungs clear, no respiratory distress, no accessory muscle use Cardiovascular/Chest: normal peripheral pulses, normal rate, regular rhythm Abdomen: normal bowel sounds, non tender, soft Extremities: other - right LE posterior area above popliteal with erythema, edema and TTP 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, no motor/sensory deficits, alert, oriented x 3, responsive Musculoskeletal: normal muscle bulk Microbiology Date/Time Source Procedure Growth Status 07/10/17 17:15 Blood Blood Culture - Preliminary NO GROWTH AFTER 48 HOURS Resulted 07/10/17 17:05 Blood Blood Culture - Preliminary NO GROWTH AFTER 48 HOURS Resulted Laboratory Tests 07/13/17 05:20: White Blood Count 7.0, Red Blood Count 4.79, Hemoglobin 14.5, Hematocrit 42.0, Mean Corpuscular Volume 88, Mean Corpuscular Hemoglobin 30.2, Mean Corpuscular Hemoglobin Concent 34.4, Red Cell Distribution Width 11.1L, Platelet Count 301, Mean Platelet Volume 7.4, Neutrophils (%) (Auto) 52.5, Lymphocytes (%) (Auto) 35.6, Monocytes (%) (Auto) 8.7, Eosinophils (%) (Auto) 2.1, Basophils (%) (Auto ) 1.1, Prothrombin Time 12.0H, Prothromb Time International Ratio 1.1, Sodium Level 139, Potassium Level 4.2, Chloride Level 106, Carbon Dioxide Level 26, Anion Gap 7, Blood Urea Nitrogen 8, Creatinine 0.7, Estimat Glomerular Filtration Rate > 60, Glucose Level 87, Calcium Level 8.6, Thyroid Stimulating Hormone (TSH) 0.799 Current Medications Medications (Trade) Dose Ordered Sig/Mary Alice Route PRN Reason Start Time Stop Time Status Last Admin Dose Admin Acetaminophen (Tylenol) 650 mg Q4H PRN ORAL fever 07/10/17 22:15 08/09/17 22:14 07/12/17 09:16 Al Hydroxide/Mg Hydroxide (Mylanta II) 30 ml Q6H PRN ORAL dyspepsia 07/10/17 22:15 08/09/17 22:14 Dextrose (Dextrose 50%) STAT PRN IV Hypoglycemia 07/10/17 22:15 08/09/17 22:14 Enoxaparin Sodium (Lovenox) 70 mg EVERY 12 HOURS SUBQ 07/12/17 21:00 08/11/17 20:59 07/13/17 08:41 Levothyroxine Sodium (Synthroid) 100 mcg ACBREAKFAST ORAL 07/11/17 06:30 08/10/17 06:29 07/13/17 05:58 Lorazepam (Ativan 2mg/ml 1ml) 0.5 mg Q4H PRN IV For Anxiety 07/10/17 22:15 07/17/17 22:14 Morphine Sulfate (Morphine Sulfate) 1 mg Q4H PRN IVP For Pain 07/10/17 22:15 07/17/17 22:14 07/10/17 23:01 Ondansetron HCl (Zofran) 4 mg Q6H PRN IVP Nausea & Vomiting 07/10/17 22:15 08/09/17 22:14 Polyethylene Glycol (Miralax) 17 gm HSPRN PRN ORAL Constipation 07/10/17 22:15 08/09/17 22:14 07/11/17 19:58 Warfarin Sodium (Coumadin per pharmacy) 1 ea DAILY PRN MISC Per rx protocol 07/11/17 06:45 08/10/17 06:44 Warfarin Sodium (Coumadin) 7.5 mg COUMADIN ONCE ORAL 07/13/17 17:00 07/13/17 17:01 Zolpidem Tartrate (Ambien) 5 mg HSPRN PRN ORAL Insomnia 07/10/17 22:15 07/17/17 22:14 Timothy PryorLeonora washington NP Jul 13, 2017 10:21
[2017-07-13 12:30] VITALS: BP 117/77
[2017-07-13 16:00] VITALS: BP 119/84
[2017-07-13] MEDS ORDERED: Warfarin Sodium 7.5mg ORAL ONE (17:00)
[2017-07-13 20:00] VITALS: BP 117/78
--- NOTE | 2017-07-13 22:42 | General Progress Note ---
Assessment/Plan Assessment/Plan Assessment and Plan 1. Right lower extremity DVT. Currently on Coumadin and Lovenox. INR goal 2-3 2. Myositis potentially 2/2 prior Nepalese butt lift surgery 3. Right leg swelling and fluid collection 4. Right leg pain 5. Hypothyroidism Subjective Allergies: Coded Allergies: No Known Allergies (Unverified , 12/22/16) All Systems: reviewed and negative except above Subjective no complaints Objective Last 24 Hour Vital Signs Date Time Temp Pulse Resp B/P (MAP) Pulse Ox O2 Delivery O2 Flow Rate FiO2 07/13/17 20:00 97.9 88 18 117/78 98 Room Air 07/13/17 16:00 97.9 75 18 119/84 96 Room Air 07/13/17 13:39 97.2 07/13/17 12:30 97.7 87 18 117/77 98 Room Air 07/13/17 08:00 97.2 94 18 116/79 96 Room Air 07/13/17 04:00 98.8 65 17 120/65 97 Room Air 07/13/17 00:20 98.1 81 18 125/82 96 Room Air Intake and Output 07/13/17 07/14/17 19:00 07:00 Intake Total 850 ml Balance 850 ml Intake Oral 850 ml # Voids 2 Laboratory Tests 07/13/17 05:20: White Blood Count 7.0, Red Blood Count 4.79, Hemoglobin 14.5, Hematocrit 42.0, Mean Corpuscular Volume 88, Mean Corpuscular Hemoglobin 30.2, Mean Corpuscular Hemoglobin Concent 34.4, Red Cell Distribution Width 11.1L, Platelet Count 301, Mean Platelet Volume 7.4, Neutrophils (%) (Auto) 52.5, Lymphocytes (%) (Auto) 35.6, Monocytes (%) (Auto) 8.7, Eosinophils (%) (Auto) 2.1, Basophils (%) (Auto ) 1.1, Prothrombin Time 12.0H, Prothromb Time International Ratio 1.1, Sodium Level 139, Potassium Level 4.2, Chloride Level 106, Carbon Dioxide Level 26, Anion Gap 7, Blood Urea Nitrogen 8, Creatinine 0.7, Estimat Glomerular Filtration Rate > 60, Glucose Level 87, Calcium Level 8.6, Thyroid Stimulating Hormone (TSH) 0.799 Height (Feet): 5 Height (Inches): 3.00 Weight (Pounds): 152 General Appearance: no apparent distress EENT: normal ENT inspection Neck: normal alignment Cardiovascular: normal peripheral pulses, normal rate 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
[2017-07-14 04:00] VITALS: BP 113/77
[2017-07-14 05:21] LABS: EOSINOPHILS % (AUTO) 2.1 % (0.0-3.0); LYMPHOCYTES % (AUTO) 38.7 % (20.0-45.0); MEAN CORPUSCULAR HEMOGLOBIN 30.7 PG (27.0-31.0); MEAN CORPUSCULAR VOLUME 88 FL (80-99); MEAN PLATELET VOLUME 7.3 FL (6.5-10.1); MONOCYTES % (AUTO) 9.9 % (1.0-10.0); NEUTROPHILS % (AUTO) 48.3 % (45.0-75.0); PLATELET COUNT 269 K/UL (150-450); RED BLOOD COUNT 4.39 M/UL (4.20-5.40); WHITE BLOOD COUNT 6.3 K/UL (4.8-10.8)
[2017-07-14 05:26] LABS: INR 2.1 (0.9-1.1); PROTHROMBIN TIME 22.3 SEC (9.30-11.50)
[2017-07-14 08:00] VITALS: BP 111/68
--- NOTE | 2017-07-14 08:15 | Consultation ---
DATE OF CONSULTATION: 07/11/2017 Hematology/Oncology Consultation CONSULTING PHYSICIAN: Tayo Andrade M.D. REFERRING PHYSICIAN: Carl Disla M.D. REASON FOR CONSULTATION: Management for DVT of lower extremities. IDENTIFICATION DATA: Dear Dr. Disla: The patient is a pleasant 41-year-old female with past medical history significant for hypothyroidism, lower extremity swelling that has been ongoing for the past several weeks, reporting gradual onset since her plastic surgery with Dr. Baez. Dr. Baez . Since then the patient has been having intermittent similar symptoms of the lower extremities reported. She does not have a DVT treatment. MRI completed showed myositis of right vastus lateralis muscles and receiving antibiotics. Hematology was consulted for evaluation of DVT and treatment. ALLERGIES: No known drug allergies. MEDICATIONS: Have been reviewed. SOCIAL HISTORY: Unknown. FAMILY HISTORY: Noncontributory. REVIEW OF SYSTEMS: CONSTITUTIONAL: No fever, chills, or night sweats. SKIN: No rashes, bumps, or itching. HEENT: No headache, hearing, or vision changes. BREASTS: No lumps, pain, or discharge. PULMONARY: No cough, sputum, or shortness of breath. GASTROINTESTINAL: No nausea, vomiting, or diarrhea. GENITOURINARY: No dysuria, frequency, or urgency. MUSCULOSKELETAL: No joint swelling, muscle pain, or trauma. PHYSICAL EXAMINATION: GENERAL: No acute distress. VITAL SIGNS: Reviewed. PULMONARY: Clear to auscultation bilaterally. CARDIOVASCULAR: Regular rate. No S3 or S4. ABDOMEN: Soft, nontender, and nondistended. EXTREMITIES: 1+ edema on the right side, 2+ edema on the left side. LABORATORY DATA: WBC , hemoglobin 13.1, hematocrit 40%, and platelets 184,000. ASSESSMENT AND PLAN: 1. Right lower extremity deep venous thrombosis, on three months of anticoagulation. It is likely related to recent surgery and drainage from the sides. Continue the patient on Lovenox and also warfarin. INR goal is between 2 and 3. 2. Chronic right posterior leg swelling, fluid collection, presented one year ago, ongoing issues. Continue to seek Plastic Surgery evaluation. 3. Elevated ESR. Closely monitor inflammatory state. 4. Iron-deficiency anemia. Continue ferrous sulfate. 5. Hypothyroidism. Treat with Synthroid as needed as per team. Consider Endocrinology as an outpatient. Tayo Andrade M.D. DR: Raz JOB#: [id number] CC:
[2017-07-14] MEDS: Enoxaparin Sodium 300mg/3ml vial SUBQ SCH (08:28)
[2017-07-14 12:00] VITALS: BP 120/70
[2017-07-14 16:00] VITALS: BP 115/71
--- NOTE | 2017-07-14 16:20 | General Progress Note ---
Assessment/Plan Assessment/Plan Assessment and Plan 1. Right lower extremity DVT. Currently on Coumadin and Lovenox. INR goal 2-3 --> ok to dc lovenox, inr now therapeutic 2. Myositis potentially 2/2 prior [place] butt lift surgery 3. Right leg swelling and fluid collection 4. Right leg pain 5. Hypothyroidism Subjective Allergies: Coded Allergies: No Known Allergies (Unverified , 12/22/16) Subjective no complaints Objective Last 24 Hour Vital Signs Date Time Temp Pulse Resp B/P (MAP) Pulse Ox O2 Delivery O2 Flow Rate FiO2 07/14/17 12:00 97.6 80 19 120/70 97 Room Air 07/14/17 08:00 98.3 75 16 111/68 96 Room Air 07/14/17 04:00 98.0 78 18 113/77 97 Room Air 07/13/17 20:00 97.9 88 18 117/78 98 Room Air Intake and Output 07/14/17 07/15/17 19:00 07:00 Intake Total 600 ml Balance 600 ml Intake Oral 600 ml # Voids 2 Laboratory Tests 07/14/17 04:20: White Blood Count 6.3, Red Blood Count 4.39, Hemoglobin 13.5, Hematocrit 38.5, Mean Corpuscular Volume 88, Mean Corpuscular Hemoglobin 30.7, Mean Corpuscular Hemoglobin Concent 35.0, Red Cell Distribution Width 11.0L, Platelet Count 269, Mean Platelet Volume 7.3, Neutrophils (%) (Auto) 48.3, Lymphocytes (%) (Auto) 38.7, Monocytes (%) (Auto) 9.9, Eosinophils (%) (Auto) 2.1, Basophils (%) (Auto ) 1.0, Prothrombin Time 22.3H, Prothromb Time International Ratio 2.1H Height (Feet): 5 Height (Inches): 3.00 Weight (Pounds): 152 Tayo Andrade Jul 14, 2017 16:20
[2017-07-14] MEDS ORDERED: Warfarin Sodium 4mg PO ONE (17:00)
[2017-07-14] MEDS ORDERED: COUMADIN2 MG ORAL (17:25)
--- NOTE | 2017-07-14 17:27 | Pulmonology Progress Note ---
Assessment/Plan Problems: (1) Pelvic fluid collection (2) Acute deep vein thrombosis (DVT) Assessment/Plan sp drainage fo 350 cc fluid continue coumadin 2 mg close f/u with outpatient physician in less than a week Subjective ROS Limited/Unobtainable: No Constitutional: Reports: no symptoms HEENT: Repors: no symptoms Respiratory: Reports: no symptoms Cardiovascular: Reports: no symptoms Allergies: Coded Allergies: No Known Allergies (Unverified , 12/22/16) Objective Last 24 Hour Vital Signs Date Time Temp Pulse Resp B/P (MAP) Pulse Ox O2 Delivery O2 Flow Rate FiO2 07/14/17 16:00 98.0 86 17 115/71 96 Room Air 07/14/17 12:00 97.6 80 19 120/70 97 Room Air 07/14/17 08:00 98.3 75 16 111/68 96 Room Air 07/14/17 04:00 98.0 78 18 113/77 97 Room Air 07/13/17 20:00 97.9 88 18 117/78 98 Room Air Intake and Output 07/14/17 07/15/17 19:00 07:00 Intake Total 600 ml Balance 600 ml Intake Oral 600 ml # Voids 2 General Appearance: WD/WN HEENT: normocephalic, atraumatic Respiratory/Chest: chest wall non-tender, normal breath sounds Breasts: no masses Cardiovascular: normal rate, regular rhythm Abdomen: normal bowel sounds, soft, non tender Genitourinary: normal external genitalia Extremities: no clubbing 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, no motor/sensory deficits Lymphatic: no neck adenopathy Laboratory Tests 07/14/17 04:20: White Blood Count 6.3, Red Blood Count 4.39, Hemoglobin 13.5, Hematocrit 38.5, Mean Corpuscular Volume 88, Mean Corpuscular Hemoglobin 30.7, Mean Corpuscular Hemoglobin Concent 35.0, Red Cell Distribution Width 11.0L, Platelet Count 269, Mean Platelet Volume 7.3, Neutrophils (%) (Auto) 48.3, Lymphocytes (%) (Auto) 38.7, Monocytes (%) (Auto) 9.9, Eosinophils (%) (Auto) 2.1, Basophils (%) (Auto ) 1.0, Prothrombin Time 22.3H, Prothromb Time International Ratio 2.1H Current Medications Medications (Trade) Dose Ordered Sig/Mary Alice Route PRN Reason Start Time Stop Time Status Last Admin Dose Admin Acetaminophen (Tylenol) 650 mg Q4H PRN ORAL fever 07/10/17 22:15 08/09/17 22:14 07/14/17 16:47 Al Hydroxide/Mg Hydroxide (Mylanta II) 30 ml Q6H PRN ORAL dyspepsia 07/10/17 22:15 08/09/17 22:14 Dextrose (Dextrose 50%) STAT PRN IV Hypoglycemia 07/10/17 22:15 08/09/17 22:14 Levothyroxine Sodium (Synthroid) 100 mcg ACBREAKFAST ORAL 07/11/17 06:30 08/10/17 06:29 07/14/17 05:44 Lorazepam (Ativan 2mg/ml 1ml) 0.5 mg Q4H PRN IV For Anxiety 07/10/17 22:15 07/17/17 22:14 Morphine Sulfate (Morphine Sulfate) 1 mg Q4H PRN IVP For Pain 07/10/17 22:15 07/17/17 22:14 07/10/17 23:01 Ondansetron HCl (Zofran) 4 mg Q6H PRN IVP Nausea & Vomiting 07/10/17 22:15 08/09/17 22:14 Polyethylene Glycol (Miralax) 17 gm HSPRN PRN ORAL Constipation 07/10/17 22:15 08/09/17 22:14 07/11/17 19:58 Warfarin Sodium (Coumadin per pharmacy) 1 ea DAILY PRN MISC Per rx protocol 07/11/17 06:45 08/10/17 06:44 Zolpidem Tartrate (Ambien) 5 mg HSPRN PRN ORAL Insomnia 07/10/17 22:15 07/17/17 22:14 CHOCO FREY Jul 14, 2017 17:27
--- NOTE | 2017-07-15 08:39 | Discharge Summary ---
Discharge Summary Hospital Course Date of Admission Jul 10, 2017 at 19:49 Date of Discharge Jul 14, 2017 at 18:46 Admitting Diagnosis right leg myositis HPI Nae Rivera is a 41 year old female who was admitted on Jul 10, 2017 at 19: 49 for Right Leg Myositis Hospital Course dc summary #[id number] Discharge Medications New Medications: Warfarin Sod* (Coumadin*) 2 Mg Tablet 2 MG ORAL DAILY for 10 Days, TAB Continued Medications: Ferrous Sulfate* (Ferrous Sulfate*) 325 Mg Tablet 325 MG ORAL DAILY, #30 TAB 0 Refills Levothyroxine Sodium* (Synthroid*) 100 Mcg Tablet 100 MCG ORAL DAILY, TAB Take in the morning on an empty stomach, at least 30 minutes before food. Discharge Condition Upon Discharge: stable Discharge Disposition Patient was discharged to Home (01) Discharge Diagnoses: Timothy (Heidy)Leonora NP Jul 15, 2017 08:39
--- NOTE | 2017-07-16 03:15 | Discharge Summary 2 SIG ---
DATE OF ADMISSION: 07/10/2017 DATE OF DISCHARGE: 07/14/2017 REASON FOR ADMISSION: 41-year-old female with past medical history of hypothyroidism, presented to the emergency department due to the increased right lower extremity swelling. Apparently, the patient undergone plastic procedure for Sudanese lift about a year ago and since the procedure, had intermittent similar symptoms with negative duplex of right lower extremity. The patient was seen periodically in the plastic surgeon office for drainage of the accumulated fluid in the right posterior lower extremity. Over the last few days, symptoms worsened with increased swelling and discomfort. She denied fever and chills. The patient also had an MRI done, which revealed myositis of the right vastus lateralis. The patient never received any antibiotics. She was referred by plastic surgeon to the hospital for further evaluation. Upon evaluation, she was afebrile, no leukocytosis; however, venous duplex bilateral lower extremities revealed acute nonocclusive thrombus in the proximal popliteal vein. Patient was admitted for further management. HOSPITAL STAY:The patient was started on anticoagulation. Hematology consult requested along with Infectious Disease consult. In terms of anticoagulation, the patient was on Lovenox and Coumadin to bridge to the therapeutic INR. On 07/14/2017, INR - 2.1, Lovenox discontinued, and the patient was discharged on Coumadin and to follow up with primary medical doctor to keep INR in therapeutic range. The patient also undergone MRI of the hip, which revealed multiple right thigh and buttock/hip fluid collection, most of which appeared to be communicated. Punctate foci of internal low signal may represent surgically introduced foreign bodies. Given clinical history, presumably represents sequela of prior cosmetic procedure. Only minimal soft tissue edema seen focally adjacent to the midportion of the right thigh collection, no other evidence of significant soft tissue inflammation, considerable fatty replacement of the gluteus abdias muscle, no evidence of osteomyelitis. Subsequently, drainage of the fluid by Interventional Radiology was ordered. On 07/14/2017, the patient undergone drainage by Interventional Radiology, which yielded about 350 mL. The patient was afebrile, no leukocytosis. At this point, Infectious Disease doctor stated that no need for antibiotics. TSH was within normal limits. Current dose of levothyroxine was continued. Pain management was provided. Unfortunately we were unable to get plastic surgery evaluation, but the patient will follow up with her plastic surgeon and continue Coumadin. The patient was stable for discharge. FINAL DIAGNOSES: 1. Chronic right posterior leg swelling and fluid collection after Sudanese butt lift. 2. Acute deep vein thrombosis, right lower extremity popliteal vein. 3. Myositis, right lower extremity likely due to injury. 4. History of plastic surgery, i.e., Sudanese lift. 5. Right lower extremity pain. 6. Hypothyroidism. DISCHARGE MEDICATIONS: See medication reconciliation list. DISCHARGE INSTRUCTIONS: The patient was discharged home. Follow up with the plastic surgeon next week. Follow up with the primary medical doctor for INR check. Carl Disla M.D. Leonora GarciaMohawk Valley General HospitalTanya N.PSherri DR: DENISE JOB#: [id number] CC: SAMANTHA
--- NOTE | 2017-07-16 10:48 | Diagnostic Imaging Report ---
Indication: Right posterior thigh and buttock fluid collection seen on recent MRI Technique: Informed consent obtained prior to commencement of procedure. Residual timeout performed. Sterile prepping and draping. Under real-time ultrasound guidance, the thigh fluid collection was accessed via a posterior approach using a Yueh needle. Ultrasound images confirm needle placement. Total 350 mL of serosanguineous fluid aspirated. Followup sonography confirms complete evacuation of the collections. The patient tolerated the procedure well, without immediate complication. Comparison: Reference made to MRI dated 07/11/2017 Findings: As above Impression: Successful aspiration of posterior right thigh and buttock fluid collection under ultrasound guidance, as described
--- NOTE | 2017-07-17 23:14 | Diagnostic Imaging Report ---
APPROVED REPORT CPT Code: 47375 Present Symptoms Lower Extremity Pain: Right Lower Extremity Edema: Right Comments: D-dimer elevated. Hx right leg swelling x1 year. Prior right LEV done 12/22/2016. RIGHT LEG: Venous imaging reveals acute, non-occlusive thrombus in the proximal popliteal vein. There is no evidence of thrombus within the common femoral, superficial femoral or tibial vein segments. The greater saphenous vein is also within normal limits. Doppler indicates normal spontaneous flow within these segments. Incidental finding: There is a large, superficial, anechoic structure containing echogenic debris extending from the posterior proximal lateral thigh to the posterior distal lateral thigh. The structure measures 5 cm x 6.2 cm x 5 cm at the proximal thigh. Dr. Ray was informed of abnormal results at 18:40 hrs.
== END 2017-07-14 18:46 | disposition home or self-care (01) | DRG 197 ==
LOC: EMR 17:40 → 4E 19:49 → EDBEDREQ 20:15 → 3E 07-12 20:14
PROC: 0J993ZZ Drainage of Buttock Subcutaneous Tissue and Fascia, Percutaneous Approach (ICD-10-PCS; principal; 2017-07-14)
PROC: 0J9L3ZZ Drainage of Right Upper Leg Subcutaneous Tissue and Fascia, Percutaneous Approach (ICD-10-PCS; 2017-07-14)
DX: I82.431 Acute embolism and thrombosis of right popliteal vein (principal); E03.9 Hypothyroidism, unspecified; R60.0 Localized edema; Z98.890 Other specified postprocedural states; M60.88 Other myositis, other site; M79.604 Pain in right leg; D50.9 Iron deficiency anemia, unspecified; Z79.01 Long term (current) use of anticoagulants
CPT/HCPCS: 36415; 80048; 80053; 80061; 82550; 84443; 85025; 85379; 85610; 85651; 85730; 87040; 93971; 99284; 99285; J2405